=== PATIENT | female | born 1955 | race Caucasian/White ===

== ENCOUNTER 2024-05-07 14:13 | Inpatient (IN) | payer MEDICARE, OTHER, SELFPAY ==
--- NOTE | 2024-05-07 14:14 | ED.GENADULT ---
HPI - General Adult General Time Seen by Provider: 14:14 Date Seen: 05/07/24 Chief complaint: Hip Injury/Pain Stated complaint: broken hip Time Seen by Provider: 05/07/24 14:14 Source: patient, RN notes reviewed and old records reviewed Mode of arrival: ambulatory Limitations: no limitations History of Present Illness HPI narrative: 69-year-old female who comes in today with right hip pain and fracture. Patient was doing a trial run today, was almost finished when she tripped and fell injuring her right hip. She was unable to finish the race. She initially presented to an outside orthopedic urgent care and by report has a hip fracture, denies head injury or any other symptoms. No medical problems of which she is aware. Related Data Home Medications ?Medication ?Instructions ?Recorded ?Confirmed No Known Home Medications 05/07/24 05/07/24 Allergies Allergy/AdvReac Type Severity Reaction Status Date / Time No Known Drug Allergies Allergy Verified 05/07/24 14:26 Exam Narrative: Exam Narrative: General: Well-developed and well-nourished, no acute distress Head: Atraumatic and normocephalic Eyes: Pupils are equal reactive, extraocular motions intact, conjunctiva clear ENT: External nose and ears are normal, posterior pharynx without erythema or exudate Neck: No midline cervical tenderness, full spontaneous range of motion the neck, trachea midline, no adenopathy Heart: Regular rate and rhythm no murmurs or thrills Lungs: Clear to auscultation bilaterally without wheezes or crackles Abdomen: Soft, nontender, nondistended with active bowel sounds Musculoskeletal: Right leg shortened and externally rotated Neurologic: Awake, alert, and oriented x3, no gross focal neurologic deficits, cranial nerves intact as tested Psych: Mood and affect are appropriate Skin: No rashes Const: Vital Signs, click to edit/add: Vital Signs - 24 hr 05/07/24 14:22 Temperature 99 F Pulse Rate [Pulse Oximeter] 57 L Respiratory Rate 22 Blood Pressure [Ri ght Upper Arm] 149/97 H Pulse Oximetry 99 Oxygen Delivery Me thod Room Air Course Course ED Course: Patient seen examined, reviewed prior a patient record which demonstrates no visits since 2017 in the [facility] system. Patient presents today with right hip injury after a fall occurring around 11 30 a.m. today. Was seen at an outside facility and she reports that the hips broken, and brought x-rays and these will be reviewed. No head injury loss of conscious, denies any other injuries. Plan for admission and orthopedic consultation repair. Patient is NPO since 12:30 p.m.. She declines pain medicine. Reevaluation(s) Time of Reevaluation #1: 14:36 Reevaluation #1: X-ray independently interpreted by me with right femoral neck fracture. Contacted Geronimo Panchal PA-C ortho who will review x-rays, requests lateral view of the hip. Updated patient with findings and hand. Patient was initially hesitant to get an IV but is agreeable after explaining need for fluids, especially in light of her run in the heat today although no clinical signs of dehydration. I did clarify that around 12:30 p.m. she had approximately 6 oz of water. Discussed with hospitalist Dr. Arroyo for admission. Time of Reevaluation #2: 15:03 Reevaluation #2: Discussed with Orthopedics, plan for total hip replacement tomorrow. Vital Signs Vital signs: Initial Vital Signs Temperature 99 F 05/07/24 14:22 Temperature Source Temporal Artery Scan 05/07/24 14:22 Pulse Rate 57 L 05/07/24 14:22 Respiratory Rate 05/07/24 14:22 Blood Pressure 149/97 H 05/07/24 14:22 Blood Pressure Mean 114 H 05/07/24 14:22 Blood Pressure Position Supine 05/07/24 14:22 Pulse Oximetry 99 05/07/24 14:22 Oxygen Delivery Method Room Air 05/07/24 14:22 Vital Signs Temperature 99 F 05/07/24 14:22 Pulse Rate 57 L 05/07/24 14:22 Respiratory Rate 05/07/24 14:22 Blood Pressure 149/97 H 05/07/24 14:22 Pulse Oximetry 99 05/07/24 14:22 Oxygen Delivery Method Room Air 05/07/24 14:22 Temperature 99 F 05/07/24 14:22 Pulse Rate 57 L 05/07/24 14:22 Respiratory Rate 05/07/24 14:22 Blood Pressure 149/97 H 05/07/24 14:22 Pulse Oximetry 99 05/07/24 14:22 Oxygen Delivery Method Room Air 05/07/24 14:22 Discharge Plan Discharge Clinical Impression: Closed displaced fracture of right femoral neck Patient Disposition: Admitted As Observation
[2024-05-07 14:22] VITALS: BP 149/97; PULSE 57; RESP 22; TEMP 37.2; O2SAT 99; BMI 19.1
--- NOTE | 2024-05-07 14:44 | CRLHL7_ITS ---
For Patients: As a result of the Cures Act, medical imaging exams and procedure reports are released immediately into your electronic medical record. You may view this report before your referring provider. If you have questions, please contact your health care provider. INDICATION: Fracture, not otherwise specified. COMPARISON: Radiographs of the pelvis and right hip performed elsewhere from the same day. TECHNIQUE: Cross-table lateral radiograph of the right hip (one view) FINDINGS/IMPRESSION: Complete subcapital right femoral neck fracture with posterior displacement. Dictated by Giovanni Bolton MD @ 05/07/2024 3:34:09 PM (Electronically Signed)
[2024-05-07] MEDS: 0.9 % SODIUM CHLORIDE 1000 ml 1,000 ML IV (15:15)
[2024-05-07 15:16] LABS: Basophils Percent Auto 0.3 % (0.0-3.0); Hematocrit 38.9 % (33.0-51.0); Immature Granulocytes Pct Auto 1.1 %; Lymphocytes Percent Auto 5.1 % (20-44); Mean Corpuscular HGB Conc 33 gm/dL (32-36); Mean Corpuscular Hemoglobin 32 pg (26-34); Mean Corpuscular Volume 95 fL (80-100); Monocytes Percent Auto 5.5 % (0.0-11.0); Platelet Count* 267 K/uL (140-440); RDW Coefficient of Variation % 12.6 % (11.5-15.5); Red Blood Count 4.09 m/uL (4.00-5.20); White Blood Count* 12.93 K/uL (4.50-11.00)
[2024-05-07 15:26] VITALS: BP 149/97; PULSE 57; RESP 22; TEMP 37.2
[2024-05-07 15:27] LABS: Slide Review Reflex No
[2024-05-07 15:32] LABS: Chloride* 102 mmol/L (96-114); Potassium* 3.6 mmol/L (3.6-5.1); Sodium* 135 mmol/L (135-149)
[2024-05-07 15:35] LABS: Anion Gap 7 mEq/L (7-15); Blood Urea Nitrogen* 16 mg/dL (7-30); Carbon Dioxide* 26 mmol/L (20-32); Creatinine* 0.7 mg/dL (0.5-1.5); Est. Creatinine Clearance* 45.62; Estimated Glomerular Filt Rate 94 ml/min; Glucose* 110 mg/dL (60-115)
[2024-05-07 15:36] LABS: Calcium* 9.1 mg/dL (8.4-10.6)
[2024-05-07 15:47] VITALS: BP 151/88; PULSE 60; RESP 16; TEMP 36.6; O2SAT 96; BMI 18.2
--- NOTE | 2024-05-07 18:10 | P.IMHP_ITS ---
Hospitalist- H&P: HPI History of Present Illness Time Seen by Provider: 16:00 Date Seen: 05/07/24 Chief complaint: broken hip Narrative: Salina Iniguez is a 69 year old female who hasn't doctored in years and who runs regularly was running a trail race today when she tripped and fell near the end of the race. She could not finish the race due to pain in her right hip. She went to an orthopedic urgent care and then was referred to the ER for a hip fracture. She noted that transfers from bed to bed were really painful, but she does not feel any pain at rest. She tells me that she does not want any narcotics and only wants acetaminophen for pain. She denies any chest pain or shortness of breath at rest or with activity. She has run 3 half marathons this year in addition to various trail races. Review of Systems Status of ROS: Reports: 6 or more systems reviewed and unremarkable except as noted in History and below PFSH PFSH Family History (Updated 05/07/24 @ 18:19 by Arlette Arroyo MD) Father Cardiovascular disease Myocardial infarction Gastric cancer Lymphoma Mother Cardiovascular disease Myocardial infarction Sister Osteoporosis Social History (Updated 05/07/24 @ 19:43 by Arlette Arroyo MD) Narrative: . is with her. She runs regularly for exercise. She is a lifelong nonsmoker and denies alcohol use. Wishes to be a FULL CODE. What is your current living situation?: I presently have a place to live Problems where you live: no known problems Problems where you live details: N/A In the past 12 months, utilities in danger of being shut off: no In past 12 months, lack of transportation kept you from medical appts, meetings, work, or getting things needed for daily living: no In the past 12 mos, have been you worried that your food would run out before you had money to buy more?: never true In the past 12 mos, the food you bought just didn't last and you didn't have money to buy more?: never true Highest level of school completed/degree received: Bachelor's degree Smoking Status: Never smoker How often do you have a drink containing alcohol: never AUDIT-C Alcohol total score: 0 Non-prescribed substance use: denies use Caffeine: No How often does anyone, including family, friends and others, physically hurt you : never How often does anyone, including family, friends and others, insult or talk down to you: never How often does anyone, including family, friends and others, threaten you with harm: never How often does anyone, including family, friends and others, scream or curse at you: never service: No Meds Home Medications and Allergies Home Medications ?Medication ?Instructions ?Recorded ?Confirmed ?Type No Known Home Medications 05/07/24 05/07/24 History Home Medication Comments: Multivitamin daily. She takes a few tablets of calcium whenever she feels like it, a couple times a week, doesn't know dose. Allergies Allergy/AdvReac Type Severity Reaction Status Date / Time No Known Drug Allergies Allergy Verified 05/07/24 14:26 Exam Narrative: Exam Narrative: General: No acute distress. Awake alert oriented x3. Thin. HEENT: Normocephalic atraumatic, pupils equally round and reactive to light and accommodation. Oropharynx clear. Mucous membranes are moist. No cervical lymphadenopathy, thyromegaly or carotid bruits. No JVD. Cardiovascular: Regular rate and rhythm. No murmurs, gallops, or rubs. Chest: No increased work of breathing. Clear to auscultation bilaterally. No crackles or wheezes. Abdomen: Bowel sounds present. Soft, nondistended, nontender. No hepatosplenomegaly or masses. Extremities: Right leg is shortened and externally rotated. No bruising over the hip. Small abrasion on right knee, no bleeding or drainage. No edema, no cyanosis or clubbing. Skin: No jaundice, no pallor, no rashes. Const: Vital Signs, click to edit/add: Vital Signs - 24 hr 05/07/24 14:22 05/07/24 15:26 05/07/24 15:47 Temperature 99 F 99 F 98 F Pulse Rate [Apical ] 60 Pulse Rate [Pulse Oximeter] 57 L 57 L Respiratory Rate 22 22 16 Blood Pressure [Ri ght Arm] 151/88 H Blood Pressure [Ri ght Upper Arm] 149/97 H 149/97 H Pulse Oximetry 99 96 Oxygen Delivery Me thod Room Air Room Air Hospitalist - H&P: Result Labs Labs: Short CBC 05/07/24 Range/Units 15:09 WBC 12.93 H (4.50-11.00) K/uL Hgb 13.0 (12.0-16.0) gm/dL Hct 38.9 (33.0-51.0) % Plt Count 267 (140-440) K/uL [facility] 05/07/24 15:03 Sodium 135 Potassium 3.6 Chloride 102 Carbon Dioxide 26 BUN 16 Creatinine 0.7 Glucose 110 Calcium 9.1 05/07/2024 EKG: Sinus bradycardia with premature atrial complexes, 57 beats per minute, possible left atrial enlargement. Incomplete right bundle-branch block. Ordering Physician: Kaleb Marte M.D. Date of Service: 05/07/24 Procedure(s): XR hip RT 1V Accession Number(s): [id number] cc: Provider,Not a Local; Kaleb Marte M.D.~ For Patients: As a result of the Cures Act, medical imaging exams and procedure reports are released immediately into your electronic medical record. You may view this report before your referring provider. If you have questions, please contact your health care provider. INDICATION: Fracture, not otherwise specified. COMPARISON: Radiographs of the pelvis and right hip performed elsewhere from the same day. TECHNIQUE: Cross-table lateral radiograph of the right hip (one view) FINDINGS/IMPRESSION: Complete subcapital right femoral neck fracture with posterior displacement. Dictated by Giovanni Bolton MD @ 05/07/2024 3:34:09 PM (Electronically Signed) Assessment and Plan Assessment and plan (1) Closed displaced fracture of right femoral neck: Problem comment: - mildly displaced right femoral neck fracture, ortho is aware and planning to take her for right hip surgery tomorrow. Will admit for bed rest and pain control overnight, NPO after midnight - Preop assessment: EKG reviewed. Patient has no known chronic medical conditions. She has a family h/o CAD and osteoporosis, but has successfully completed multiple half marathons and other running events this year without CP or SOB. Lifelong non smoker. No further cardiopulmonary work up needed prior to planned low cardiopulmonary risk orthopedic surgery. Status: Acute (2) Osteoporosis: Problem comment: - patient has a family history of this. She is periodically taken calcium, but nothing on a regular basis. It is unclear if she is taking vitamin-D with calcium. Postoperatively I think she should establish with a primary care provider as an outpatient to discuss more chronic treatment options for osteoporosis such as calcium with vitamin D supplements on a regular basis along with bisphosphonate. Status: Suspected Plan I have started SCDs for VTE prophylaxis, but I am holding off on pharmacologic prophylaxis and she will be having surgery tomorrow.
[2024-05-07 19:00] VITALS: BP 129/79; PULSE 72; RESP 16; O2SAT 98
[2024-05-07 22:34] LABS: Appearance Urine Clear (Clear); Bilirubin Urine Negative (Negative); Blood Urine Negative (Negative); Color Urine Yellow (Yellow); Glucose Urine Negative (Negative); Ketones Urine Negative (Negative); Leukocyte Esterase Urine Negative (Negative); Nitrite Urine Negative (Negative); Protein Urine Negative (Negative); Urobilinogen Urine 0.2 (0.2-1.0); pH Urine 6.5 (5.0-8.5)
[2024-05-07] MEDS: 0.9 % SODIUM CHLORIDE 1000 ml 1,000 ML 50 ML IV (22:36)
[2024-05-07 22:45] LABS: Amorphous Sediment Urine Moderate; Bacteria Urine Few; RBC Urine 0-2 (0-2); Squamous Epithelial Cell Urine Few (None-Few); WBC Urine 0-2 (0-5)
[2024-05-07 23:00] VITALS: BP 138/83; PULSE 55; RESP 18; TEMP 37.1; O2SAT 98
--- NOTE | 2024-05-07 23:30 | PC.NURSE ---
PT [facility]. Arrived on unit around 1500 with a fracture to right hip due to a fall from running a trail race. Patient on bedrest until surgery tomorrow. Used bedpan to urinate without difficulty. RN offered PRN pain medications x 3 throughout shift but patient denied. Ice pack to right hip continuously for comfort. Tolerated a regular diet. NPO after midnight.
[2024-05-08] VITALS (26 sets, daily range): BP systolic 91–132; BP diastolic 30–93; PULSE 49–86; RESP 11–24; TEMP 36.2–37.5; O2SAT 93–100
[2024-05-08] MEDS: 0.9 % SODIUM CHLORIDE 1000 ml 1,000 ML 50 ML IV (05:22)
[2024-05-08 06:34] LABS: Basophils Absolute Auto 0.03 K/uL (0.00-0.30); Basophils Percent Auto 0.4 % (0.0-3.0); Eosinophils Absolute Auto 0.03 K/uL (0.00-0.50); Eosinophils Percent Auto 0.4 % (0.0-7.0); Hematocrit 36.3 % (33.0-51.0); Hemoglobin* 11.9 gm/dL (12.0-16.0); Immature Granulocytes Abs Auto 0.02 K/uL (0.00-0.30); Immature Granulocytes Pct Auto 0.2 %; Lymphocytes Absolute Auto 1.99 K/uL (0.90-2.90); Lymphocytes Percent Auto 24.7 % (20-44); Mean Corpuscular HGB Conc 33 gm/dL (32-36); Mean Corpuscular Hemoglobin 31 pg (26-34); Mean Corpuscular Volume 95 fL (80-100); Monocytes Percent Auto 12.3 % (0.0-11.0); Platelet Count* 242 K/uL (140-440); RDW Coefficient of Variation % 12.8 % (11.5-15.5); Red Blood Count 3.82 m/uL (4.00-5.20); White Blood Count* 8.06 K/uL (4.50-11.00)
[2024-05-08 06:49] LABS: Chloride* 101 mmol/L (96-114); Sodium* 131 mmol/L (135-149)
[2024-05-08 06:52] LABS: Anion Gap 5 mEq/L (7-15); Blood Urea Nitrogen* 12 mg/dL (7-30); Carbon Dioxide* 25 mmol/L (20-32); Creatinine* 0.7 mg/dL (0.5-1.5); Est. Creatinine Clearance* 44.83; Estimated Glomerular Filt Rate 94 ml/min; Glucose* 102 mg/dL (60-115)
[2024-05-08 06:53] LABS: Calcium* 8.5 mg/dL (8.4-10.6)
[2024-05-08 06:54] LABS: Slide Review Reflex No
--- NOTE | 2024-05-08 06:54 | PC.NURSE ---
End of shift note ([id number]): Patient pleasant, alert and oriented. On bed rest. Rated pain in right hip 5/10. Reported she was tolerating pain.?NPO since midnight.?
--- NOTE | 2024-05-08 09:33 | NUTR.NU ---
RDN with nutrition screen related to positive skin risk score. Patient admitted for right femur fracture, planning to go to surgery today. Current diet is NPO. Meal intake yesterday dinner was 100%. Current weight 117lb 14.4oz; height 5ft 6.5in; BMI 18.7kg/m2. No weight history to assess. Patient's BMI is low, however still considered normal. Good meals intake and normal BMI, no nutrition interventions at this time given patient is NPO for surgery today. RDN will continue to monitor and follow-up prn.
--- NOTE | 2024-05-08 10:12 | PM.ORCN ---
History of Present Illness HPI Date Seen: 05/08/24 Chief complaint: broken hip Narrative: Salina is a pleasant 69 year old female who is an avid runner. In fact, she was in a trail race on 05/07/2024, (date of injury) when she tripped and fell near the end of the race landing on her right hip. She did try to stand up and continue racing, but found it not possible. She went to a [facility] orthopedic urgent care and then was referred to an ER for a hip fracture. She noted that transfers from bed to bed were really painful, but she does not feel any pain at rest. She denies any chest pain or shortness of breath at rest or with activity. She has run 3 half marathons this year in addition to various trail races. PFSH PFS Family History (Updated 05/07/24 @ 18:19 by Arlette Arroyo MD) Father Cardiovascular disease Myocardial infarction Gastric cancer Lymphoma Mother Cardiovascular disease Myocardial infarction Sister Osteoporosis Social History (Updated 05/07/24 @ 19:43 by Arlette Arroyo MD) Narrative: . is with her. She runs regularly for exercise. She is a lifelong nonsmoker and denies alcohol use. Wishes to be a FULL CODE. What is your current living situation?: I presently have a place to live Problems where you live: no known problems Problems where you live details: N/A In the past 12 months, utilities in danger of being shut off: no In past 12 months, lack of transportation kept you from medical appts, meetings, work, or getting things needed for daily living: no In the past 12 mos, have been you worried that your food would run out before you had money to buy more?: never true In the past 12 mos, the food you bought just didn't last and you didn't have money to buy more?: never true Highest level of school completed/degree received: Bachelor's degree Smoking Status: Never smoker How often do you have a drink containing alcohol: never AUDIT-C Alcohol total score: 0 Non-prescribed substance use: denies use Caffeine: No How often does anyone, including family, friends and others, physically hurt you: never How often does anyone, including family, friends and others, insult or talk down to you: never How often does anyone, including family, friends and others, threaten you with harm: never How often does anyone, including family, friends and others, scream or curse at you: never service: No Meds Home Medications and Allergies Home Medications ?Medication ?Instructions ?Recorded ?Confirmed ?Type No Known Home Medications 05/07/24 05/07/24 History Allergies Allergy/AdvReac Type Severity Reaction Status Date / Time No Known Drug Allergies Allergy Verified 05/07/24 14:26 Ortho Exam Narrative Exam Narrative: She is lying supine in hospital bed. Alert. Cooperative. Oriented x3. Her right hip shows no lacerations or abrasions. Pain about the right groin with any hip or knee range of motion. Neurologic intact in superficial and deep peroneal as well as plantar distribution to sensory light touch and motor function. 2+ DP/PT pulse. Const Vital Signs, click to edit/add: Vital Signs - 24 hr 05/07/24 14:22 05/07/24 15:26 05/07/24 15:47 Temperature 99 F 99 F 98 F Pulse Rate [Apical] 60 Pulse Rate [Pulse Oximeter] 57 L 57 L Respiratory Rate 22 22 16 Blood Pressure [Right Arm] 151/88 H Blood Pressure [Right Upper Arm] 149/97 H 149/97 H Pulse Oximetry 99 96 Oxygen Delivery Method Room Air Room Air 05/07/24 19:00 05/07/24 23:00 05/07/24 23:00 Temperature 98.8 F Pulse Rate [Apical] Pulse Rate [Pulse Oximeter] 72 55 L Respiratory Rate 16 18 18 Blood Pressure [Right Arm] 129/79 138/83 Blood Pressure [Right Upper Arm] Pulse Oximetry 98 98 98 Oxygen Delivery Method Room Air Room Air Room Air 05/08/24 03:00 05/08/24 07:51 05/08/24 07:51 Temperature 99.2 F 98.4 F Pulse Rate [Apical] Pulse Rate [Pulse Oximeter] 66 58 L 58 L Respiratory Rate 18 12 12 Blood Pressure [Right Arm] 123/80 132/81 Blood Pressure [Right Upper Arm] Pulse Oximetry 96 97 Oxygen Delivery Method Room Air 05/08/24 07:51 Temperature Pulse Rate [Apical] Pulse Rate [Pulse Oximeter] Respiratory Rate 12 Blood Pressure [Right Arm] Blood Pressure [Right Upper Arm] Pulse Oximetry 97 Oxygen Delivery Method Room Air Results Labs Labs: Laboratory Results - last 48 hr 05/07/24 05/07/24 05/07/24 15:03 15:09 22:25 WBC 12.93 H RBC 4.09 Hgb 13.0 Hct 38.9 MCV 95 MCH 32 MCHC 33 RDW Coeff of Zakiya 12.6 Plt Count 267 Neut % (Auto) 88.0 H Lymph % (Auto) 5.1 L [place] % (Auto) 5.5 Eos % (Auto) 0.0 Baso % (Auto) 0.3 Neut # (Auto) 11.40 H Lymph # (Auto) 0.70 L [place] # (Auto) 0.70 Eos # (Auto) 0.00 Baso # (Auto) 0.00 Abs Immat Gran (auto) 0.10 Imm/Tot Granulo (auto) 1.1 Sodium 135 Potassium 3.6 Chloride 102 Carbon Dioxide 26 Anion Gap 7 BUN 16 Creatinine 0.7 Estimated Creat Clear 45.62 Estimated GFR 94 Glucose 110 Calcium 9.1 Urine Color Yellow Urine Appearance Clear Urine pH 6.5 Ur Specific [place] 1.020 Urine Protein Negative Urine Glucose (UA) Negative Urine Ketones Negative Urine Blood Negative Urine Nitrite Negative Urine Bilirubin Negative Urine Urobilinogen 0.2 Ur Leukocyte Esterase Negative Urine RBC 0-2 Urine WBC 0-2 Ur Squamous Epith Cells Few Amorphous Sediment Moderate A Urine Bacteria Few A Blood Type O Positive Antibody Screen NEGATIVE 05/08/24 06:11 WBC 8.06 RBC 3.82 L Hgb 11.9 L Hct 36.3 MCV 95 MCH 31 MCHC 33 RDW Coeff of Zakiya 12.8 Plt Count 242 Neut % (Auto) 62.0 Lymph % (Auto) 24.7 [place] % (Auto) 12.3 H Eos % (Auto) 0.4 Baso % (Auto) 0.4 Neut # (Auto) 5.00 Lymph # (Auto) 1.99 [place] # (Auto) 1.00 H Eos # (Auto) 0.03 Baso # (Auto) 0.03 Abs Immat Gran (auto) 0.02 Imm/Tot Granulo (auto) 0.2 Sodium 131 L Potassium 4.0 Chloride 101 Carbon Dioxide 25 Anion Gap 5 L BUN 12 Creatinine 0.7 Estimated Creat Clear 44.83 Estimated GFR 94 Glucose 102 Calcium 8.5 Urine Color Urine Appearance Urine pH Ur Specific [place] Urine Protein Urine Glucose (UA) Urine Ketones Urine Blood Urine Nitrite Urine Bilirubin Urine Urobilinogen Ur Leukocyte Esterase Urine RBC Urine WBC Ur Squamous Epith Cells Amorphous Sediment Urine Bacteria Blood Type Antibody Screen Diagnostic results Additional Comments: AP pelvis as well as AP and frog lateral views of the right hip reviewed from outside [facility] [place] images from 05/07/2024. These were ordered by different provider and reviewed by me. This shows displaced right femoral neck fracture with varus angulation, external rotation, and shortening to the right femur. The joint space is well preserved otherwise. The hip remains located. A cross-table lateral view of the right hip from [facility] dated 05/07/2024 was also ordered by a different provider and reviewed by me. This again shows the AP femoral neck fracture. The displacement is less clearly visible, and again the hip remains located. Assessment and Plan Assessment and plan (1) Closed displaced fracture of right femoral neck: Problem comment: - mildly displaced right femoral neck fracture, ortho is aware and planning to take her for right hip surgery tomorrow. Will admit for bed rest and pain control overnight, NPO after midnight - Preop assessment: EKG reviewed. Patient has no known chronic medical conditions. She has a family h/o CAD and osteoporosis, but has successfully completed multiple half marathons and other running events this year without CP or SOB. Lifelong non smoker. No further cardiopulmonary work up needed prior to planned low cardiopulmonary risk orthopedic surgery. Status: Acute Total time spent: Total time spent is greater than 50% in coordination of care (as documented) at patient's floor/unit and/or counseling patient: (2) Osteoporosis: Problem comment: - patient has a family history of this. She is periodically taken calcium, but nothing on a regular basis. It is unclear if she is taking vitamin-D with calcium. Postoperatively I think she should establish with a primary care provider as an outpatient to discuss more chronic treatment options for osteoporosis such as calcium with vitamin D supplements on a regular basis along with bisphosphonate. Status: Suspected Total time spent: Total time spent is greater than 50% in coordination of care (as documented) at patient's floor/unit and/or counseling patient: Plan I had a good discussion today with the patient and her . In we reviewed the radiographs and helped understand the pathology. In addition, we also talked through the various nonoperative or surgical treatment options. In my opinion, surgery is indicated. This would be for a right total hip arthroplasty. While the cartilage is well preserved on radiographs and she had no pre-existing hip problems, given her youthful age and high activity level, I think a bipolar hemiarthroplasty would not serve her well but would fail/wear of the acetabulum prematurely. I described this back to her, she states understanding. She indeed is ready for a right total hip arthroplasty. More specifically, we discussed the risks, benefits, and alternatives to right ELIER. This includes, but is not limited to, infection, aseptic loosening, fracture, hip instability, or other systemic risks (e.g. MS, VTE, stroke). I was able to connect with the hospitalist team and coordinate care. In addition, I have communicated with Anesthesia team to coordinate care. Indeed we will plan for a right ELIER today. The patient remains NPO. Postoperatively I would expect she should weight bear as tolerated. It is possible she may be discharged from the hospital to her home as opposed to a SNF. PT & OT consult will be helpful. Social work consult will also be helpful for discharge planning
[2024-05-08] MEDS: ACETAMINOPHEN 500 MG TABLET 1000 MG PO ×3 (11:08→23:49)
[2024-05-08] MEDS: OXYCODONE (CR) 10 MG TAB.ER.12H PO (11:10)
--- NOTE | 2024-05-08 11:15 | SUR.PREOP ---
Patient brought down for surgery with jewelry still on
--- NOTE | 2024-05-08 11:16 | SUR.PREOP ---
patient belongings brought back to m/s from [facility] and locked in patient belonging drawer.
[2024-05-08] MEDS: MIDAZOLAM HCL 1 MG/ML inj IVP (11:19)
[2024-05-08] MEDS: fentaNYL 100 MCG/2 ML inj IVP (11:19)
--- NOTE | 2024-05-08 11:19 | SUR.PREOP ---
TIME?OUT:?1118 PT/RN/MDA?VERIFICATION?OF?SURGICAL?SITE,?PROCEDURE,?AND?CONSENT OBTAINED?PRIOR?TO?INVASIVE?PROCEDURE. all in agreement
[2024-05-08] MEDS: LACTATED RINGERS 1000 ML 1,000 ML 100 ML IV ×2 (11:20→13:42)
--- NOTE | 2024-05-08 12:00 | CRLHL7_ITS ---
For Patients: As a result of the Cures Act, medical imaging exams and procedure reports are released immediately into your electronic medical record. You may view this report before your referring provider. If you have questions, please contact your health care provider. Indication: Hip replacement surgery Technique: AP hip fluoroscopic image. Fluoroscopy time 45.3 seconds. Findings/Impression: Hardware from a right total hip arthroplasty is in satisfactory position. Dictated by Berny Flor MD @ 05/09/2024 8:57:05 AM (Electronically Signed)
--- NOTE | 2024-05-08 12:01 | P.NB_ITS ---
Nerve Block Nerve Block Time Seen by Provider: 11:20 Date Seen: 05/08/24 Type of block requested by surgeon for post-operative analgesia: MARITZA/LFCN Side: right Time out performed: Yes Verification of patient name: Yes Verification of date of : Yes Site marking: site marked Name of person performing procedure: Fan Continuous monitoring Was continuous monitoring of O2 sat, B/P, military technology manager, recorded every 15 minutes?: Yes Procedure Checklist: sterile prep, needles and gloves Ultrasound guided. Images saved: Yes Medications given in 5ml increments after negative aspiration: Ropivicaine %: 0.5 mL: 30 Needle gauge: 20 Decadron (mg): 10 Precedex (mcg): 25 Patient tolerated procedure well: Yes Additional comments: Needle noted below psoas tendon needle noted adjacent to LFCN Block Charges Block Charge (with Pro Fee): Other Periph Nerve Block Use of Ultrasound Machine for Block: Yes- US Guidance/pain block
--- NOTE | 2024-05-08 12:01 | W.ANESCHARGE ---
Anesthesia Charges Start Date/Time Anesthesia Start Date: 05/08/24 Anesthesia Start Time: 12:15 Stop Date/Time Anesthesia Stop Date: 05/08/24 Anesthesia Stop Time: 14:37
[2024-05-08] MEDS: CEFAZOLIN 2 GM in 0.9 % SODIUM CHLORIDE Mini-bag 100 ML IVPB (12:44)
[2024-05-08] MEDS: TRANEXAMIC ACID 100 MG/ML INJ 1000 MG IV (12:44)
--- NOTE | 2024-05-08 14:19 | P.ORPRC_ITS ---
Procedure Note Date of procedure: 05/08/24 Procedure: PREOPERATIVE DIAGNOSIS: 1. Right femoral neck fracture, displaced POSTOPERATIVE DIAGNOSIS: 1. Right femoral neck fracture, displaced PROCEDURE: 1. Right total hip arthroplasty - anterior approach (dual mobility) - for displaced femoral neck fracture and an active 69-year-old female 2. 90031 - intraoperative fluoroscopy up to 1 hour. SURGEON: Max Rodriguez MD. BULLET CASTING OPERATOR: AXEL Lockhart; Geronimo Panchal PA-C - Of note, a skilled assistant associate full professor was critical for this case to aid in patient positioning, tissue retraction, limb manipulation/positioning, and closure. ANESTHESIA: Spinal anesthetic EBL: 700 mL IMPLANTS: DePuy J&J uncemented total hip [place] cup size 52, dual mobility metallic liner for the acetabulum component + hole eliminator, Actis stem, standard offset (+4mm) 22.225mm inner ceramic head Outer dual mobility polyethylene head to fit a 45 metallic liner. COMPLICATIONS: None evident INDICATIONS: The patient is a pleasant 69-year-old female who has experienced 80 right femoral neck fracture that was displaced after a fall while running on a trail race on 05/07/2024. She was unable to bear weight following this injury. She eventually presented to [facility] urgent care. X-rays revealed a displaced femoral neck fracture. She was told to move to an emergency room. She was brought by personal vehicle to [place] ED. X-rays were reviewed as noted. Given the displaced fracture as well as her high activity level, surgery is recommended for right ELIER. FINDINGS: Femoral neck fracture that was displaced with fracture hematoma as expected. Articular cartilage was otherwise decently preserved. DESCRIPTION OF PROCEDURE: Following a thorough discussion of risks, benefits, and alternatives consent was obtained and the right hip was marked. The patient was brought to the operating room and placed supine on the operating table. Induction of anesthesia was undertaken. 1 g IV Ancef and 1 g tranexamic acid was administered within 1 hr of incision preoperatively. Proper time-out was performed identifying proper patient, site, procedure. The operative extremity was prepped and draped in the appropriate sterile fashion using ChloraPrep after the patient was positioned on the [place] table with head in neutral alignment and all bony prominences well padded. C-arm fluoroscopic imaging was utilized to confirm proper pelvis rotation and position, and to get true AP films of both the contralateral left, and the affected right hip. This is for comparison. A longitudinal incision was made starting approximately 1 cm distal to the ASIS, and 3-4 cm lateral. The incision was extended distally aiming toward the lateral border the patella. Sharp incision through skin and bovie cautery through the subcutaneous tissue allowed identification of the TFL fascia. This was sharply divided, and the fascia bluntly released from the muscle fibers as we dissected medial. Upon coming to the medial border, we were able to retract the TFL laterally, and penetrated the deeper fascia and identify the crossing circumflex vessels. These were ligated/cauterized. The rectus was elevated from the capsule, and retractors placed laterally and medially along the femoral neck to help with visualization of the capsule. We then performed an inverted T capsulotomy. The capsule was tagged for later repair. Retractors were placed inside the capsule. The femoral neck was visualized after releasing medially down to the lesser trochanter, along the saddle laterally, and up onto the acetabulum. The femoral neck cut was made in line with our preoperative templating. The head was removed in a single piece, and sized. We turned our attention to acetabular preparation. Initially, the labrum was resected from around the perimeter, the pulvinar was excised, allowing us to visualize the false wall. We started the reaming with a 43 mm reamer. This was medialized down to the true wall. We then enlarged our reamers sequentially up to one size less than the selected cup size. We trialed at the same size and found it to have an excellent fit. The selected cup was then opened, inserted, and impacted in line with the goal of 40? of abduction, and 20-25? of anteversion. This was confirmed on C-arm fluoroscopic imaging to be in the appropriate/goal position. Once the cup was placed we placed a hole eliminator and a liner consistent with preop planning. Attention was turned to the femoral preparation. The limb was extended, externally rotated, and adducted. The posteromedial capsule was released, as retractors were placed allowing excellent access to the proximal femur. Initially a music box mechanic was followed by canal finder followed by various broaches. We broached sequentially up to the size noted above, found it to have excellent rotational control, and trialing various heads and necks, revealed that appropriate neck offset, and the above noted head size provided the greatest stability, and mandaeism of length, and offset. C-arm fluoroscopic imaging confirmed position of the stem, as well as leg lengths, which were compared with the pre procedure all fluoroscopic images. Trial implants were removed, the real femoral stem inserted, as was the appropriate head. After reducing, the leg was placed through range of motion and stability was confirmed anterior, posterior, and lateral. A 3 min Betadine soak was then performed, and thorough irrigation with normal saline followed. Closure of the capsule was performed with #1 PDS. Bleeding was confirmed to be controlled at this stage, and the TFL fascia was closed with #0 strata fix. Subcutaneous, and subcuticular closure was performed with 2-0 Vicryl and 4-0 Monocryl, respectively. Dressings were applied, and the patient was awoken from anesthesia and transferred the PACU in stable condition. A skilled assistant associate full professor was critical for this case to aid in patient positioning, tissue retraction, acetabular and proximal femoral exposure, limb manipulation/positioning, dislocation/relocation, patient safety, and closure. PLAN: 1. Weight bear as tolerated operative extremity. 2. 23 hr perioperative antibiotics. 3. Ice. 4. PT/OT consults for ambulation assistance/mobility education. 5. Social work consult for discharge planning. 6. DVT prophylaxis with at SCDs and Xarelto x5 days followed by aspirin for a total of 1 month..
--- NOTE | 2024-05-08 14:50 | W.ANESCHARGE ---
Anesthesia Charges Start Date/Time Anesthesia Start Date: 05/08/24 Anesthesia Start Time: 12:15 Stop Date/Time Anesthesia Stop Date: 05/08/24 Anesthesia Stop Time: 14:37
--- NOTE | 2024-05-08 14:57 | CRLHL7_ITS ---
For Patients: As a result of the Cures Act, medical imaging exams and procedure reports are released immediately into your electronic medical record. You may view this report before your referring provider. If you have questions, please contact your health care provider. Indication: Postop Technique: AP hip centered pelvic x-ray and lateral view right hip Findings/Impression: Hardware from a right total hip arthroplasty is in satisfactory position. Bone alignment is normal. No sign of acute fracture. Postop changes are within normal limits. Dictated by Berny Flor MD @ 05/09/2024 10:21:05 AM (Electronically Signed)
--- NOTE | 2024-05-08 15:19 | SUR.PHASEI ---
patient met discharge criteria per anesthesia
--- NOTE | 2024-05-08 16:02 | PM.IMPN1 ---
Progress Note: A&P Assessment and plan (1) Closed displaced fracture of right femoral neck: Problem details: Status post right hip arthroplasty by Dr. Rodriguez 05/08/2024. No complications. Doing well. Routine postoperative management of pain and therapy. Anticipate relatively quick recovery and discharge to home Status: Acute (2) Osteoporosis: Problem details: Consider treatment for osteoporosis after this fragility fracture. Status: Suspected Plan Continue in hospital for management of pain and therapy with anticipated discharge tomorrow Time Spent With Patient Total time spent: 35 minutes discussing with patient and and other providers plan of care Subjective Date Seen: 05/08/24 Interval history: 69-year-old female previously healthy admitted to the hospital for right femoral neck fracture after a fall. She was participating in a trail running race when she fell near the end of the race. Unable to get up in walk again she presented with her to urgent care and then referred to the emergency department after finding a hip fracture. She reports no other injury. She reports she has been generally well. Does not have a personal history of osteoporosis but does have a family history of osteoporosis. No other chronic medical problems. 05/08/2024: Overnight she reports doing well. Not requiring pain medication. No other symptoms or concerns. Seen postoperatively after hip replacement surgery by Dr. Rodriguez. There were no complications. Estimated blood loss of 700 mL. Exam Narrative: Exam Narrative: She is alert and appears in no distress. Mood and affect are bright. Respirations are unlabored. She has no lower extremity edema. She moves her feet and ankles well without weakness. Const: Vital Signs, click to edit/add: Vital Signs - 24 hr 05/07/24 19:00 05/07/24 23:00 05/07/24 23:00 Temperature 98.8 F Pulse Rate Pulse Rate [Pulse Oximeter] 72 55 L Respiratory Rate 16 18 18 Blood Pressure Blood Pressure [Ri ght Arm] 129/79 138/83 Pulse Oximetry 98 98 98 Oxygen Delivery Me thod Room Air Room Air Room Air Oxygen Flow Rate 05/08/24 03:00 05/08/24 07:51 05/08/24 07:51 Temperature 99.2 F 98.4 F Pulse Rate Pulse Rate [Pulse Oximeter] 66 58 L 58 L Respiratory Rate 18 12 12 Blood Pressure Blood Pressure [Ri ght Arm] 123/80 132/81 Pulse Oximetry 96 97 Oxygen Delivery Me thod Room Air Oxygen Flow Rate 05/08/24 07:51 05/08/24 11:16 05/08/24 11:23 Temperature Pulse Rate Pulse Rate [Pulse Oximeter] 59 L 86 Respiratory Rate 12 16 14 Blood Pressure Blood Pressure [Ri ght Arm] 122/91 H 118/78 Pulse Oximetry 97 100 99 Oxygen Delivery Me thod Room Air Room Air Nasal Cannula Oxygen Flow Rate 3 05/08/24 11:35 05/08/24 11:45 05/08/24 14:33 Temperature 98.1 F Pulse Rate 51 L Pulse Rate [Pulse Oximeter] 53 L 52 L Respiratory Rate 12 14 11 L Blood Pressure 94/66 Blood Pressure [Ri ght Arm] 91/63 Pulse Oximetry 99 94 Oxygen Delivery Me thod Nasal Cannula Nasal Cannula Room Air Oxygen Flow Rate 2 2 05/08/24 14:40 05/08/24 14:45 05/08/24 14:50 Temperature 98.1 F 98.1 F 98.1 F Pulse Rate 61 55 L 53 L Pulse Rate [Pulse Oximeter] Respiratory Rate 11 L 12 11 L Blood Pressure 100/84 109/70 109/68 Blood Pressure [Ri ght Arm] Pulse Oximetry 94 93 99 Oxygen Delivery Me thod Room Air Room Air Room Air Oxygen Flow Rate 05/08/24 14:55 05/08/24 15:00 05/08/24 15:05 Temperature 98.1 F 97.6 F 97.6 F Pulse Rate 55 L 52 L 56 L Pulse Rate [Pulse Oximeter] Respiratory Rate 16 12 16 Blood Pressure 110/71 97/75 112/84 Blood Pressure [Ri ght Arm] Pulse Oximetry 95 95 96 Oxygen Delivery Me thod Room Air Room Air Room Air Oxygen Flow Rate Documenting provider has reviewed patient's vital signs: yes Labs Labs: Laboratory Results - last 24 hr 05/07/24 05/07/24 05/08/24 15:09 22:25 06:11 WBC 8.06 RBC 3.82 L Hgb 11.9 L Hct 36.3 MCV 95 MCH 31 MCHC 33 RDW Coeff of Zakiya 12.8 Plt Count 242 Neut % (Auto) 62.0 Lymph % (Auto) 24.7 [place] % (Auto) 12.3 H Eos % (Auto) 0.4 Baso % (Auto) 0.4 Neut # (Auto) 5.00 Lymph # (Auto) 1.99 [place] # (Auto) 1.00 H Eos # (Auto) 0.03 Baso # (Auto) 0.03 Abs Immat Gran (auto) 0.02 Imm/Tot Granulo (auto) 0.2 Sodium 131 L Potassium 4.0 Chloride 101 Carbon Dioxide 25 Anion Gap 5 L BUN 12 Creatinine 0.7 Estimated Creat Clear 44.83 Estimated GFR 94 Glucose 102 Calcium 8.5 Urine Color Yellow Urine Appearance Clear Urine pH 6.5 Ur Specific [place] 1.020 Urine Protein Negative Urine Glucose (UA) Negative Urine Ketones Negative Urine Blood Negative Urine Nitrite Negative Urine Bilirubin Negative Urine Urobilinogen 0.2 Ur Leukocyte Esterase Negative Urine RBC 0-2 Urine WBC 0-2 Ur Squamous Epith Cells Few Amorphous Sediment Moderate A Urine Bacteria Few A Blood Type O Positive Antibody Screen NEGATIVE
--- NOTE | 2024-05-08 18:58 | PC.NURSE ---
End of Shift: Patient pleasant and cooperative. Patient vitally stable, lungs clear, BS WNL, IV running LR at 75. Patient rates right hip pain at most 2/10, tylenol given once. Patient is up in chair and has ambulated the reina x1. Patient tolerating regular diet and has not yet urinated. Right hip dressing C/D/I. Active ice to right hip.
[2024-05-08] MEDS: CEFAZOLIN 1 GM in 0.9 % SODIUM CHLORIDE Mini-bag 100 ML IVPB (21:06)
[2024-05-09 03:00] VITALS: BP 131/85; PULSE 55; RESP 16; TEMP 37.2; O2SAT 97
[2024-05-09] MEDS: CEFAZOLIN 1 GM in 0.9 % SODIUM CHLORIDE Mini-bag 100 ML IVPB (04:56)
[2024-05-09] MEDS: ACETAMINOPHEN 500 MG TABLET 1000 MG PO ×2 (05:53→12:48)
--- NOTE | 2024-05-09 06:05 | PC.NURSE ---
End of shift : Pt AXO x3, cooperative, and pleasant. Pt denies CP/SOB/N/V/D throughout the shift. Pt rated pain at most 2/10 on a numerical scale. Receivable Executive discussed PRN pain medications. PRN Tylenol has been given along with active ice to the surgical site. R hip dressing is CDI. Pt was up and walking throughout the hallways with GB and W during shift. Pt is tolerating regular diet/fluids well. Pt continent of the bladder, draining. Pt appears resting with call light in reach.
[2024-05-09 08:21] VITALS: BP 117/77; PULSE 68; RESP 16; TEMP 37.1; O2SAT 99
[2024-05-09 08:37] LABS: Vitamin D 25 Hydroxy* 24 ng/mL (30-80)
[2024-05-09] MEDS: RIVAROXABAN 10 MG TABLET PO (09:51)
--- NOTE | 2024-05-09 12:21 | PM.DS1 ---
DS: Providers Provider Date Seen: 05/09/24 Date of admission: 05/07/24 17:36 Primary care physician: Not a Local Provider Admitting Clinician: Arlette Arroyo MD Attending Physician on discharge: Brodie Domínguez MD Date of Discharge: 05/09/24 DS: Diagnosis Discharge Diagnosis (1) Closed displaced fracture of right femoral neck: Status: Acute Problem details: Status post right hip arthroplasty by Dr. Rodriguez 05/08/2024. No complications. Doing well. Routine postoperative management of pain and therapy. Anticipate relatively quick recovery and discharge to home today. (2) Osteoporosis: Status: Suspected Problem details: Consider treatment for osteoporosis after this fragility fracture. Calcium plus vitamin-D plus Fosamax recommend DS: Summary Hospital Course Hospital Course: 69-year-old female previously healthy admitted to the hospital for right femoral neck fracture after a fall. She was participating in a trail running race when she fell near the end of the race. Unable to get up in walk again she presented with her to urgent care and then referred to the emergency department after finding a hip fracture. She reports no other injury. She reports she has been generally well. Does not have a personal history of osteoporosis but does have a family history of osteoporosis. No other chronic medical problems. 05/08/2024: Overnight she reports doing well. Not requiring pain medication. No other symptoms or concerns. Seen postoperatively after hip replacement surgery by Dr. Rodriguez. There were no complications. Estimated blood loss of 700 mL. 05/09/2024: Postoperative she did very well. Ambulating very well in the hallway. Pain is well controlled. Not needing opioids. Anxious to go home. Today we reviewed fragility fracture as a diagnosis of osteoporosis and appropriate treatment. Her vitamin-D level is 24 (normal level is greater than 20-30). Recommend supplementation with calcium, vitamin-D, Fosamax Time Spent with Patient Time attestation: Total time spent providing and/or coordinating discharge services: Time spent: Less than 30 minutes Exam Narrative: Exam Narrative: She is alert no distress. No significant edema. Ambulating in the reina very well. Const: Vital Signs, click to edit/add: Vital Signs - 24 hr 05/08/24 14:33 05/08/24 14:40 05/08/24 14:45 Temperature 98.1 F 98.1 F 98.1 F Pulse Rate 51 L 61 55 L Pulse Rate [Pulse Oximeter] Respiratory Rate 11 L 11 L 12 Blood Pressure 94/66 100/84 109/70 Blood Pressure [Ri ght Arm] Pulse Oximetry 94 94 [facility] 05/08/24 14:50 05/08/24 14:55 05/08/24 15:00 Temperature 98.1 F 98.1 F 97.6 F Pulse Rate 53 L 55 L 52 L Pulse Rate [Pulse Oximeter] Respiratory Rate 11 L 16 12 Blood Pressure 109/68 110/71 97/75 Blood Pressure [Ri ght Arm] Pulse Oximetry 99 95 95 Oxygen Delivery Me od Room Air Room Air Room Air 05/08/24 15:05 05/08/24 15:14 05/08/24 15:14 Temperature 97.6 F 97.7 F Pulse Rate 56 L 54 L Pulse Rate [Pulse Oximeter] 54 L Respiratory Rate 16 24 24 Blood Pressure 112/84 119/86 Blood Pressure [Ri ght Arm] Pulse Oximetry 96 98 [facility] 05/08/24 15:14 05/08/24 15:30 05/08/24 15:45 Temperature 97.2 F L 97.2 F L Pulse Rate 52 L 53 L Pulse Rate [Pulse Oximeter] Respiratory Rate 24 20 16 Blood Pressure 118/77 117/83 Blood Pressure [Ri ght Arm] Pulse Oximetry 98 97 98 [facility] Room Air 05/08/24 16:00 05/08/24 16:15 05/08/24 16:46 Temperature 97.2 F L 97.3 F L 97.8 F Pulse Rate 49 L 51 L 50 L Pulse Rate [Pulse Oximeter] Respiratory Rate 14 16 16 Blood Pressure 108/30 L 120/79 128/83 Blood Pressure [Ri ght Arm] Pulse Oximetry 100 97 100 [facility] Room Air 05/08/24 17:17 05/08/24 17:38 05/08/24 18:28 Temperature 98.2 F 98.7 F Pulse Rate 50 L 54 L Pulse Rate [Pulse Oximeter] Respiratory Rate 14 14 Blood Pressure 119/85 105/76 Blood Pressure [Ri ght Arm] Pulse Oximetry 99 99 100 Oxygen Delivery Me od Room Air Room Air 05/08/24 19:17 05/08/24 20:17 05/08/24 21:17 Temperature 99.5 F 99.5 F 99.3 F Pulse Rate 63 61 60 Pulse Rate [Pulse Oximeter] Respiratory Rate 16 16 14 Blood Pressure 110/78 116/83 116/93 H Blood Pressure [Ri ght Arm] Pulse Oximetry 100 100 100 Oxygen Delivery Me thod Room Air Room Air Room Air 05/08/24 22:55 05/08/24 22:57 05/09/24 03:00 Temperature 98.3 F 98.9 F Pulse Rate Pulse Rate [Pulse Oximeter] 62 55 L Respiratory Rate 14 16 Blood Pressure Blood Pressure [Ri ght Arm] 102/71 131/85 Pulse Oximetry 97 97 Oxygen Delivery Me thod Room Air Room Air Room Air 05/09/24 08:21 05/09/24 08:21 Temperature 98.7 F Pulse Rate Pulse Rate [Pulse Oximeter] 68 Respiratory Rate 16 16 Blood Pressure Blood Pressure [Ri ght Arm] 117/77 Pulse Oximetry 99 99 Oxygen Delivery Me thod Room Air Room Air Documenting provider has reviewed patient's vital signs: yes DS: Data Data Completed and Pending Labs on day of discharge: Labs from last 24 hours 05/09/24 05/08/24 07:53 06:11 25-OH Vitamin D Total 24 L Lab Acknowledgement Test Added Preliminary micro results at discharge 05/07/24 22:25 Urine Culture - Preliminary Urine,Clean Catch <10,000 COL/ML GRAM POSITIVE PRANAV Discharge Plan Discharge Disposition: Home, Self-Care Date of Admission: 05/07/24 17:36 Consulting Providers: Max Rodriguez Primary Care Provider: Provider,Not a Local Condition: Improved Anticipated Discharge Date/Time: 05/09/24 10:12 Discharge Medications: New sennosides-docusate sodium [Senna-S] 8.6-50 mg tablet 1 - 4 tab-cap PO BID PRN (Reason: constipation) Qty: 60 0RF Rx Instructions: Hold medication if experiencing loose stools. aspirin 81 mg tablet,delayed release (DR/EC) 81 mg PO BID Qty: 50 0RF Rx Instructions: Medication to help prevent blood clots postoperatively; take TWICE daily. acetaminophen 500 mg capsule 500 - 1,000 mg PO Q6H MDD 4000mg PRNQty: 100 0RF oxycodone 5 mg tablet 2.5 - 5 mg PO Q4-6H MDD 6 PRN (Reason: pain) Qty: 30 0RF Rx Instructions: Take as needed for postop pain: 2.5mg mild pain, 5mg moderate-severe pain; wean as tolerated. rivaroxaban 10 mg tablet 10 mg PO DAILY Qty: 4 0RF Rx Instructions: Medication for deep vein clot prevention post surgery. Complete this medication before starting Aspirin. calcium carbonate-vitamin D3 [Calcium 500 With D] 500 mg-10 mcg (400 unit) tablet 1 tab PO BID Qty: 10 0RF alendronate [Fosamax] 70 mg tablet 70 mg PO QWEEK Qty: 13 3RF Discharge Orders: Discharge Order (Routine); Ordered 05/09/24 Ordered By: Osmani Domínguez Patient Education: Acetaminophen (By mouth), Aspirin (By mouth), Laxative, Stimulant (By mouth), Oxycodone, Rapid Release (By mouth), Alendronate (By mouth) (Fosamax, Binosto), Alendronate (By mouth), Calcium/Vitamin D Supplement (By mouth), Rivaroxaban (By mouth), Senna (By mouth) (Sen, Senna-lax), Anterior Hip Replacement (DC) Activity Level: Activity as Tolerated, Weight Bearing as Tolerated, Use Cane and Use Walker Activity Detail: Wound: ? Do not remove original dressing; we will remove this at first postop visit in 1 week. Only remove dressing if integrity is in question. ? No immersing wound in water; showering okay; light scrub with your hand and body soap, rinse, dab dry ? Sutures are under the skin, will dissolve; allow surgical glue to come off naturally; do not scrub the wound or apply ointments/lotions ? Call our office with any redness that streaks, excessive drainage from the wound, or wound gapping. Ice/Elevate: ? Ice as needed for swelling and discomfort (ice pack); elevate extremity frequently above the heart. Motion/Exercise: ? Weight bear as tolerated operative extremity (walker/cane for ambulation assistance as needed) ? Per PT/OT. ? Straight leg raises daily: 1-2 sets of 10 reps Pain Medications: ? Oral narcotic as prescribed. Wean as tolerated. Additional acetaminophen as needed. Blood Clot Prevention (DVT): ? Medication: 5 days of xarelto, followed by 25 days 81 mg aspirin by mouth twice daily (1-month total treatment) Driving: ? Do not drive while taking narcotic pain medication ? Anticipate 4-6 weeks no driving if operative leg is driving leg Dental: ? No elective dental work for 6 months post-op. If there is an urgent/emergent dental need, contact our office for an antibiotic prescription. Smoking/Alcohol: ? Do not smoke; do no drink alcohol especially when taking postoperative oral narcotic medication Seek Care from you Primary Care Provider if you experience the following issues in the postoperative phase and beyond: ? Bacterial infections such as: pneumonia, bacterial skin infection (cellulitis), UTI, high fever, chills unrelated to the operative body part - call your primary care physician urgently for treatment in hopes to protect your health and the metal implant. Referrals: ? PT, OT per patient preference - evaluate treat total hip arthroplasty protocol, anterior approach (gait training, ROM, ADLs) Vaccines: ? No vaccines until 4-6 weeks postop Follow up: ? SUE visit in 1 week. ? Ortho surgeon follow-up in 6 weeks; repeat radiographs AP pelvis, cross table lateral operative hip If there are any acute concerns regarding your surgery, please call our orthopedic clinic ([phone]) Discharge Diet: Regular Follow Up Appointments: Provider,Not a Local [Primary Care Provider] - Geronimo Panchal PA-C [Physician Rigger Third] - 05/16/24 3:20 pm ([facility] for follow up) Forms: MyHealth Info Instructions
--- NOTE | 2024-05-09 16:24 | PM.ORPN ---
Subjective Subjective Time Seen by Provider: 08:30 Date Seen: 05/09/24 Principal diagnosis: Status postop day 1, right anterior ELIER post femoral neck fracture Interval history: Patient reports doing well. No acute events over night. Pain managed with scheduled and PRN medications, ice. DVT prophylaxis: Rivaroxaban, SCDs, walking. Denies fevers, chills, aches, N/V, CP, SOB/MALONE, or lightheadedness. Eager to get back to activities. Ortho Exam Narrative Exam Narrative: -Patient appears comfortable in recliner; no apparent acute distress -Alert and oriented times 3 -Operative hip swollen; soft tissues supple; no obvious erythema. Ecchymosis minimal. Warmth appropriate -Surgical dressing clean, dry, intact; no obvious drainage, no erythematous streaking peripheral to the bandage -Bilateral calves soft and supple; no significant swelling, edema, tenderness, erythema, discoloration, warmth, or palpable cords -2+ DP/PT pulses, intact dermatomes and myotomes distally (5/5 strength). No numbness about the lateral femoral cutaneous nerve distribution. Const Vital Signs, click to edit/add: Vital Signs - 24 hr 05/08/24 16:46 05/08/24 17:17 05/08/24 17:38 Temperature 97.8 F 98.2 F Pulse Rate 50 L 50 L Pulse Rate [Pulse Oximeter] Respiratory Rate 16 14 Blood Pressure 128/83 119/85 Blood Pressure [Right Arm] Pulse Oximetry 100 99 99 Oxygen Delivery Method Room Air Room Air 05/08/24 18:28 05/08/24 19:17 05/08/24 20:17 Temperature 98.7 F 99.5 F 99.5 F Pulse Rate 54 L 63 61 Pulse Rate [Pulse Oximeter] Respiratory Rate 14 16 16 Blood Pressure 105/76 110/78 116/83 Blood Pressure [Right Arm] Pulse Oximetry 100 100 100 Oxygen Delivery Method Room Air Room Air Room Air 05/08/24 21:17 05/08/24 22:55 05/08/24 22:57 Temperature 99.3 F 98.3 F Pulse Rate 60 Pulse Rate [Pulse Oximeter] 62 Respiratory Rate 14 14 Blood Pressure 116/93 H Blood Pressure [Right Arm] 102/71 Pulse Oximetry 100 97 Oxygen Delivery Method Room Air Room Air Room Air 05/09/24 03:00 05/09/24 08:21 05/09/24 08:21 Temperature 98.9 F 98.7 F Pulse Rate Pulse Rate [Pulse Oximeter] 55 L 68 Respiratory Rate 16 16 16 Blood Pressure Blood Pressure [Right Arm] 131/85 117/77 Pulse Oximetry 97 99 99 Oxygen Delivery Method Room Air Room Air Room Air Assessment and Plan Assessment and plan (1) Closed displaced fracture of right femoral neck: Problem details: Status post right hip arthroplasty by Dr. Rodriguez 05/08/2024. No complications. Doing well. Routine postoperative management of pain and therapy. Anticipate relatively quick recovery and discharge to home today. Status: Acute (2) Osteoporosis: Problem details: Consider treatment for osteoporosis after this fragility fracture. Calcium plus vitamin-D plus Fosamax recommend Status: Suspected Plan - Complete 23 hour perioperative antibiotics. - PT/OT consult for education and assistance. - Social work consult for discharge planning - Prescribed analgesics as needed - DVT prophylaxis: Rivaroxaban, SCDs, and ambulation - Anticipation is for discharge to home with spouse today, 05/09/2024 if the patient remains medically stable, pain is controlled, and they are safe with mobilization.
== END 2024-05-09 13:08 | disposition home or self-care (01) | DRG 522 ==
LOC: ED 14:46 → MEDSURG 15:28
PROVIDERS: Family Medicine; Orthopaedic Surgery Sports Medicine; Admitting Provider Family Medicine; Emergency Provider Family Medicine; Visit Provider Family Medicine
PROC: 0SR904A Replacement of Right Hip Joint with Ceramic on Polyethylene Synthetic Substitute, Uncemented, Open Approach (ICD-10-PCS; CPT 27130; principal; 2024-05-08 12:00)
DX: S72.091A Other fracture of head and neck of right femur, initial encounter for closed fracture (principal); G89.18 Other acute postprocedural pain; W01.0XXA Fall on same level from slipping, tripping and stumbling without subsequent striking against object, initial encounter; Y93.02 Activity, running; Y92.9 Unspecified place or not applicable; Y99.8 Other external cause status; M81.0 Age-related osteoporosis without current pathological fracture; I49.1 Atrial premature depolarization; R00.1 Bradycardia, unspecified; I45.10 Unspecified right bundle-branch block; Z82.62 Family history of osteoporosis
CPT/HCPCS: 01214; 36415; 64450; 73501; 76942; 80048; 81001; 82306; 85025; 86850; 86900; 86901; 87086; 93005; 97110; 97116; 97161; 97165; 97530; 97535; 99285; A9270; C1776; J0690; J1100; J2250; J2405; J2704; J2795; J3010; J3490; J7030; J7120

== ENCOUNTER 2024-06-12 14:00 | Outpatient (RCR) | payer MEDICARE, OTHER, SELFPAY ==
--- NOTE | 2024-05-18 14:23 | PT.OPEX ---
PT [facility] Outpatient Eval PT [facility] Outpatient Eval Start: 05/17/24 16:43 Freq: Status: Active Protocol: Document 05/18/24 08:39 MLS (Rec: 05/18/24 14:22 MLS [id number]) E-signed By Apolonia Vaca DPT Physical Therapy Outpatient Evaluation Insurance Information Recert Due Date 08/15/24 Insurance Name Medicare B,[employer] [facility] S72.001A fracture of unspecified part of neck of the right femur, initial encounter for closed fracture s/p R ELIER 05/08/24 (Dr. Minor) Treating Diagnosis R ELIER protocol Referring MD Geronimo Panchal PA-C Subjective Subjective Patient is a 69 year old male who presents to physical therapy with s/p right ELIER on 05/08/24. She states that she did stay overnight in the hospital one night. She states that she was doing a 6. [address] run and she tripped on something .25 mile left and had a fracture in the neck of her femur. She states that she had surgery the next day. She has been doing her home exercises program. She states that her hip does stiffen up when she is not moving. Aggravating factors include: getting in and out of bed in the morning Alleviating factors include: Tylenol, icing. Significant past medical history includes nothing. For states that she is a runner and has been running 40 years. She would like to return to the [facility] and take strength classes. She likes to bike and hike as well . Patient would like to get stronger and have less pain through physical therapy sessions. She is walking 10-15 minutes per day. Pain Comments Today: 2/10 on a 0-10 pain scale with 10 = extreme pain At its worst: 5/10 At its best: 2/10 Current Work Status Rn Postpartum Occupation [employer] - [employer] - returning next week Precautions Weight Bearing Status Full Weight Bearing Therapy Limitations/Systems Review Not Limited Objective Other/Pertinent Objective KNEE ROM WNL B HIP ROM Left: WNL Right: Flexion: 80 Internal Rotation: 10 External Rotation 10 Abduction: 15 LLE MMT: Hip flexion: R 4-/5 L 5/5 Hip abduction: R 3+/5 L 5/5 Hip extension: R 4-/5 L 5/5 Knee flexion: R 4+/5 L 5/5 Knee extension: R 4+/5 L 5 TX: Reviewed/demonstrated on frequency to perform HEP post operatively including: long sitting quad set ankle pumps supine glute sets supine hamstring sets supine heel slide standing hip abd with UE support TX: Access Code: [email or web address] URL: [email or web address] Date: 05/18/2024 Prepared by: Apolonia Vaca Exercises - Heel Raises with Counter Support - 1 x daily - 7 x weekly - 3 sets - 10 reps - Seated Long Arc Quad - 1 x daily - 7 x weekly - 3 sets - 10 reps - Standing March with Counter Support - 1 x daily - 7 x weekly - 3 sets - 10 reps - Sit to Stand - 1 x daily - 7 x weekly - 3 sets - 10 reps - Seated Hamstring Stretch with Strap - 1 x daily - 7 x weekly - 3 sets - 10 reps - Squat with Chair Support - 1 x daily - 7 x weekly - 3 sets - 10 reps - Supine Bridge - 1 x daily - 7 x weekly - 3 sets - 10 reps Assessment Assessment/Impression Pt is a 69 year old female who presents s/p right ELIER on . Patient also has notable objective findings including limited ROM, tenderness to palpation, and decreased strength which are also likely contributing to the problem. Patient is a good candidate for skilled therapy to target deficits described above. Skilled PT intervention is necessary for use of therapeutic exercise manual therapy, neuromuscular re- education, gait training, and therapeutic activity. Functional impairments include difficulty with: standing, exercising, ADLs, sleeping, driving and walking. See appropriate sections of PT eval for complete list of goals and POC. D/C plan and criteria is for pt to achieve the goals as listed below or until max rehab potential is met. Pt was agreeable with plan of care and goals established. 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 4) Patient will ambulate at least 15 minutes with single point cane, minimal antalgic gait for improved community mobility Coordination/Communication With Referral Source Treatment Plan/Direct Interventions Gait Training,Neuromuscular Re -ed,Therapeutic Activities, Therapeutic Exercises Patient Will Be Discharged From Therapy Independently Progressing Evaluation Billing Untimed Code Treatment Minutes 25 Complexity Low Certification Information Provider Signature Required Yes Provider Signature Shows Agreement With POC & Medical Necessity Physician NPI Number Write NPI# Here Physician Comment/Change : Physician Signature & Date Requested Please Sign/Date Here
== END 2024-08-08 13:03 | disposition home or self-care (01) ==
PROVIDERS: Visit Provider Physician Assistant Surgical
DX: S72.001A Fracture of unspecified part of neck of right femur, initial encounter for closed fracture (principal); Z96.641 Presence of right artificial hip joint; Z51.89 Encounter for other specified aftercare
CPT/HCPCS: 97110; 97161